=== PATIENT | female | born 1955 | race Two or more races ===

== ENCOUNTER 2023-08-05 09:38 | Outpatient (REF) | payer MEDICARE, SELFPAY ==
[2023-08-05 13:15] LABS: Anion Gap 9 (12-20); Blood Urea Nitrogen 24 mg/dL (9-16); Calcium 10.3 mg/dL (8.4-10.2); Carbon Dioxide 30 mmol/L (22-29); Chloride 104 mmol/L (96-108); Estimated Glomerular Filt Rate 56; Potassium 4.4 mmol/L (3.3-5.1); Sodium 139 mmol/L (135-145)
== END 2023-08-05 09:39 | disposition home or self-care (01) ==
LOC: CF 09:38
PROVIDERS: Visit Provider Internal Medicine Nephrology
DX: I12.9 Hypertensive chronic kidney disease with stage 1 through stage 4 chronic kidney disease, or unspecified chronic kidney disease (principal); N18.31 Chronic kidney disease, stage 3a
CPT/HCPCS: 36415; 80051; 82310; 82565; 84520; 99212

== ENCOUNTER 2023-08-05 09:38 | Outpatient (AMB) | payer MEDICARE, SELFPAY ==
--- NOTE | 2023-08-05 09:40 | HO.NEPHOV ---
HPI HPI Comments History of Present Illness Details I had the privilege of seeing Salome in follow-up of her mild chronic kidney disease and hypertension. Her blood pressure is well controlled .Her blood sugar is reasonable. She does not have any proteinuria, hematuria, pedal edema . She is compliant with her medications. She avoids nonsteroidal anti-inflammatory medications. She does not have any chest pain, shortness of breath, proximal nocturnal dyspnea, orthopnea, or any other systemic symptoms. She denies nausea vomiting or diarrhea . There were no new active complaints at the time of this office visit. FORMERLY [facility], [facility] Medical History (Updated 08/05/23 @ 09:49 by Axel Ram MD) Hypertension Chronic kidney disease, stage 3 unspecified Surgical History (Updated 08/05/23 @ 09:46 by Ally Arthur MA) History of ankle surgery Hx of abdominal surgery Family History (Updated 08/05/23 @ 09:47 by Ally Arthur MA) Mother Diabetes Brother Diabetes (Updated 08/05/23 @ 09:47 by Ally Arthur MA) Alcohol intake: never Patient Tobacco Use Status: Former Tobacco user Vital Signs 08/05/23 09:42 Height 5 ft 6 in Weight 254 lb 4 oz BMI 41.0 BP 134/80 Blood Pressure Location Rt brachial Position Sitting Pulse 64 Pulse Source Pulse Oximeter Physical Exam Vital Signs: Last Vital Signs Pulse 64 08/05/23 09:42 BP 134/80 08/05/23 09:42 BMI result Body Mass Index 41.0 Const General: comfortable and no acute distress Orientation/consciousness: patient oriented x3 HEENT Head: Yes normocephalic Mouth: Normal oral and palatal mucosa present Eyes EOM: EOMs intact bilaterally Neck Neck: Yes supple Resp Auscultation: clear to auscultation bilaterally Cardio Jugular venous distension: no JVD Rate: regular rate GI Palpation (GI): Soft to palpation Auscultation: normal bowel sounds General: Yes no CVA tenderness Back/Spine/Pelvis Back: no CVA tenderness Skin General skin exam: no rashes or lesions noted Neuro General: patient oriented x3 and moves all extremities Extrem General: Yes no pedal edema Assessment & Plan Assessment & Plan (1) Chronic kidney disease, stage 3 unspecified: Code(s): N18.30 - Chronic kidney disease, stage 3 unspecified Qualifiers: Chronic kidney disease stage 3 subtype: stage 3a (GFR 45-59) Qualified Code(s): N18.31 - Chronic kidney disease, stage 3a (2) Hypertension: Code(s): I10 - Essential (primary) hypertension Qualifiers: Hypertension type: primary hypertension Qualified Code(s): I10 - Essential (primary) hypertension Plan Salome has mild CKD 3 likely from vascular disease. She is a diabetic. She has hypertension and is on lisinopril which is tolerating very well. She has no history from hematuria proteinuria. She has no orthostatic symptoms. She has no history of left ventricular hypertrophy, retinopathy. She is compliant with her medications. She tries to hydrate herself well. She has a potential candidate for [employer] or [employer]. I have ordered follow-up blood work and urine studies. I did not make any medication changes today. All questions were answered. Time spent for retrieval of data, patient encounter and documentation 23 minutes. Orders: Orders Electrolytes Today I10 - Essential (primary) hypertension, N18.30 - Chronic kidney disease, stage 3 unspecified Blood Urea Nitrogen Today I10 - Essential (primary) hypertension, N18.30 - Chronic kidney disease, stage 3 unspecified Creatinine Today I10 - Essential (primary) hypertension, N18.30 - Chronic kidney disease, stage 3 unspecified Calcium Today I10 - Essential (primary) hypertension, N18.30 - Chronic kidney disease, stage 3 unspecified Protein Creatinine Ratio, Ur Today I10 - Essential (primary) hypertension, N18.30 - Chronic kidney disease, stage 3 unspecified UA and rflx microscopic Today I10 - Essential (primary) hypertension, N18.30 - Chronic kidney disease, stage 3 unspecified Coding Level of Care Code Est Pt Level 3 (07919) Diagnoses Stage 3a chronic kidney disease N18.31 Chronic kidney disease stage 3 subtype: stage 3a (GFR 45-59) Primary hypertension I10 Hypertension type: primary hypertension
[2023-08-05 09:42] VITALS: BP 134/80; PULSE 64; BMI 41.0
== END 2023-08-05 10:05 | disposition home or self-care (01) ==
PROVIDERS: Visit Provider Internal Medicine Nephrology
DX: N18.31 Chronic kidney disease, stage 3a (principal); I10 Essential (primary) hypertension
CPT/HCPCS: 99213

== ENCOUNTER 2023-11-04 09:52 | Outpatient (AMB) | payer MEDICARE, SELFPAY ==
[2023-11-04 09:55] VITALS: BP 136/88; PULSE 64; O2SAT 94; BMI 41.4
--- NOTE | 2023-11-04 09:55 | HO.NEPHOV_ITS ---
HPI HPI Comments History of Present Illness Details I had the privilege of seeing Salome in follow-up of her mild chronic kidney disease and hypertension. Her blood pressure is well controlled .Her blood sugar is reasonable. She does not have any proteinuria, hematuria, pedal edema . She is compliant with her medications. She avoids nonsteroidal anti- inflammatory medications. She does not have any chest pain, shortness of breath, proximal nocturnal dyspnea, orthopnea, or any other systemic symptoms. She denies nausea vomiting or diarrhea . There were no new active complaints at the time of this office visit [facility] Medical History (Updated 11/04/23 @ 10:12 by Axel Ram MD) Hypertension Chronic kidney disease, stage 3 unspecified Surgical History History of ankle surgery Hx of abdominal surgery Family History Mother Diabetes Brother Diabetes Social History Alcohol intake: never Patient Tobacco Use Status: Former Tobacco user Vital Signs 11/04/23 09:55 Height 5 ft 6 in Weight 256 lb 8 oz BMI 41.4 BP 136/88 Blood Pressure Location Lt brachial Position Sitting Pulse 64 Pulse Source Pulse Oximeter Pulse Oximetry (%) 94 Oxygen Delivery Method Room Air Physical Exam Vital Signs: Last Vital Signs Pulse 64 11/04/23 09:55 BP 136/88 11/04/23 09:55 Pulse Ox 94 11/04/23 09:55 Oxygen Delivery Method Room Air 11/04/23 09:55 BMI result Body Mass Index 41.4 Const General: comfortable and no acute distress Orientation/consciousness: patient oriented x3 HEENT Mouth: Normal oral and palatal mucosa present Eyes EOM: EOMs intact bilaterally Neck Neck: Yes supple Resp Auscultation: clear to auscultation bilaterally Cardio Jugular venous distension: no JVD Rate: regular rate GI Palpation (GI): Soft to palpation Auscultation: normal bowel sounds General: Yes no CVA tenderness Back/Spine/Pelvis Back: no CVA tenderness Skin General skin exam: no rashes or lesions noted Neuro General: patient oriented x3 and moves all extremities Extrem General: Yes no pedal edema Assessment & Plan Assessment & Plan (1) Chronic kidney disease, stage 3 unspecified: Code(s): N18.30 - Chronic kidney disease, stage 3 unspecified Qualifiers: Chronic kidney disease stage 3 subtype: stage 3a (GFR 45-59) Qualified Code(s): N18.31 - Chronic kidney disease, stage 3a (2) Hypertension: Code(s): I10 - Essential (primary) hypertension Qualifiers: Hypertension type: primary hypertension Qualified Code(s): I10 - Essential (primary) hypertension (3) Diabetes: Code(s): E11.9 - Type 2 diabetes mellitus without complications Brooklynn Mcmahon has mild CKD 3 likely from vascular disease. She is a diabetic. She has hypertension and is on lisinopril which is tolerating very well. I increased her lisinopril to 7.5 mg daily. She has no history from hematuria proteinuria. She has no orthostatic symptoms. She has no history of left ventricular hypertrophy, retinopathy. She is compliant with her medications. She tries to hydrate herself well. She has a potential candidate for [employer] or [employer]. I have ordered follow-up blood work and urine studies. I did not make any other medication changes today. All questions were answered. Orders: Orders Calcium Today E11.9 - Type 2 diabetes mellitus without complications, I10 - Essential (primary) hypertension, N18.30 - Chronic kidney disease, stage 3 unspecified Electrolytes Today E11.9 - Type 2 diabetes mellitus without complications, I10 - Essential (primary) hypertension, N18.30 - Chronic kidney disease, stage 3 unspecified Blood Urea Nitrogen Today E11.9 - Type 2 diabetes mellitus without complica tions, I10 - Essential (primary) hypertension, N18.30 - Chronic kidney disease, stage 3 unspecified Vitamin D 25-OH Total Today E11.9 - Type 2 diabetes mellitus without comp lications, I10 - Essential (primary) hypertension, N18.30 - Chronic kidney disease, stage 3 unspecified Phosphorus Today E11.9 - Type 2 diabetes mellitus without complications, I10 - Essential (primary) hypertension, N18.30 - Chronic kidney disease, stage 3 unspecified Creatinine Today E11.9 - Type 2 diabetes mellitus without complications, I10 - Essential (primary) hypertension, N18.30 - Chronic kidney disease, stage 3 unspecified Hemoglobin A1c Today E11.9 - Type 2 diabetes mellitus without complications, I10 - Essential (primary) hypertension, N18.30 - Chronic kidney disease, stage 3 unspecified Protein Creatinine Ratio, Ur Today E11.9 - Type 2 diabetes mellitus without complications, I10 - Essential (primary) hypertension, N18.30 - Chronic kidney disease, stage 3 unspecified Parathyroid Hormone Intact Today E11.9 - Type 2 diabetes mellitus without c omplications, I10 - Essential (primary) hypertension, N18.30 - Chronic kidney disease, stage 3 unspecified Coding Level of Care Code Est Pt Level 3 (63291) Diagnoses Stage 3a chronic kidney disease N18.31 Chronic kidney disease stage 3 subtype: stage 3a (GFR 45-59) Primary hypertension I10 Hypertension type: primary hypertension Diabetes E11.9 Results Reviewed Nephrology Results: Sodium 139 mmol/L (135-145) 08/05/23 Potassium 4.4 mmol/L (3.3-5.1) 08/05/23 Chloride 104 mmol/L (96-108) 08/05/23 Carbon Dioxide 30 mmol/L (22-29) H 08/05/23 BUN 24 mg/dL (9-16) H 08/05/23 Creatinine 0.99 mg/dL (0.5-1.4) 08/05/23 Calcium 10.3 mg/dL (8.4-10.2) H 08/05/23
== END 2023-11-04 10:17 | disposition home or self-care (01) ==
PROVIDERS: Visit Provider Internal Medicine Nephrology
DX: N18.31 Chronic kidney disease, stage 3a (principal); I10 Essential (primary) hypertension; E11.9 Type 2 diabetes mellitus without complications
CPT/HCPCS: 99213

== ENCOUNTER → 2023-11-04 09:52 | Outpatient (BNVA) | payer MEDICARE, SELFPAY | PROVIDERS: Visit Provider Internal Medicine Nephrology | DX: E11.22 Type 2 diabetes mellitus with diabetic chronic kidney disease (principal); I12.9 Hypertensive chronic kidney disease with stage 1 through stage 4 chronic kidney disease, or unspecified chronic kidney disease; N18.31 Chronic kidney disease, stage 3a | CPT/HCPCS: 99212 ==

== ENCOUNTER 2024-03-18 10:15 | Outpatient (REF) | payer MEDICARE, SELFPAY ==
[2024-03-18 17:48] LABS: Estimated Average Glucose 146 mg/dL; Hemoglobin A1c % 6.7 % (<6.0)
[2024-03-18 17:57] LABS: Anion Gap 13 (12-20); Blood Urea Nitrogen 25 mg/dL (9-16); Calcium 11.1 mg/dL (8.4-10.2); Carbon Dioxide 27 mmol/L (22-29); Chloride 104 mmol/L (96-108); Estimated Glomerular Filt Rate 50; Phosphorus 3.6 mg/dL (2.7-4.5); Potassium 4.3 mmol/L (3.3-5.1); Sodium 140 mmol/L (135-145)
[2024-03-19 06:58] LABS: Parathyroid Hormone Intact 61.4 pg/mL (8.7-77.1)
== END 2024-03-18 10:16 | disposition home or self-care (01) ==
LOC: HO.HKASLDS 10:15
PROVIDERS: Visit Provider Internal Medicine Nephrology
DX: I10 Essential (primary) hypertension (principal); N18.30 Chronic kidney disease, stage 3 unspecified; E11.9 Type 2 diabetes mellitus without complications
CPT/HCPCS: 36415; 80051; 82306; 82310; 82565; 83036; 83970; 84100; 84520

== ENCOUNTER 2024-03-30 10:18 | Outpatient (AMB) | payer MEDICARE, SELFPAY ==
--- NOTE | 2024-03-30 10:39 | HO.NEPHOV_ITS ---
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 Her blood pressure is well controlled .Her blood sugar is reasonable. She does not have any proteinuria, hematuria, pedal edema . She is compliant with her medications. She avoids nonsteroidal anti- inflammatory medications. She does not have any chest pain, shortness of breath, proximal nocturnal dyspnea, orthopnea, or any other systemic symptoms. She denies nausea vomiting or diarrhea . Her A1c has gone up. She has been started on bisphpsphonate and calcium by PCP. There were no new active complaints at the time of this office visit [facility] Medical History (Updated 11/04/23 @ 10:12 by Axel Ram MD) Hypertension Chronic kidney disease, stage 3 unspecified Surgical History History of ankle surgery Hx of abdominal surgery Family History Mother Diabetes Brother Diabetes Social History Alcohol intake: never Patient Tobacco Use Status: Former Tobacco user Physical Exam Vital Signs: Last Vital Signs Pulse 69 03/30/24 10:42 BP 130/90 H 03/30/24 10:42 Pulse Ox 95 03/30/24 10:42 Oxygen Delivery Method Room Air 03/30/24 10:42 BMI result Body Mass Index 42.1 Const General: comfortable and no acute distress Orientation/consciousness: patient oriented x3 HEENT Head: Yes normocephalic Mouth: Normal oral and palatal mucosa present Eyes EOM: EOMs intact bilaterally Neck Neck: Yes supple Resp Auscultation: clear to auscultation bilaterally Cardio Jugular venous distension: no JVD Rate: regular rate GI Palpation (GI): Soft to palpation Auscultation: normal bowel sounds General: Yes no CVA tenderness Back/Spine/Pelvis Back: no CVA tenderness Skin General skin exam: no rashes or lesions noted Neuro General: patient oriented x3 and moves all extremities Extrem General: Yes no pedal edema Results Reviewed Nephrology Results: Sodium 140 mmol/L (135-145) 03/18/24 Potassium 4.3 mmol/L (3.3-5.1) 03/18/24 Chloride 104 mmol/L (96-108) 03/18/24 Carbon Dioxide 27 mmol/L (22-29) 03/18/24 BUN 25 mg/dL (9-16) H 03/18/24 Creatinine 1.09 mg/dL (0.5-1.4) 03/18/24 Calcium 11.1 mg/dL (8.4-10.2) H 03/18/24 Phosphorus 3.6 mg/dL (2.7-4.5) 03/18/24 PTH Intact 61.4 pg/mL (8.7-77.1) 03/18/24 Assessment & Plan Assessment & Plan (1) Chronic kidney disease, stage 3 unspecified: Code(s): N18.30 - Chronic kidney disease, stage 3 unspecified Category: Medical Qualifiers: Chronic kidney disease stage 3 subtype: stage 3a (GFR 45-59) Qualified Code(s): N18.31 - Chronic kidney disease, stage 3a (2) Hypertension: Code(s): I10 - Essential (primary) hypertension Category: Medical Qualifiers: Hypertension type: primary hypertension Qualified Code(s): I10 - Essential (primary) hypertension Plan Salome has mild CKD 3 likely from vascular disease. She is a diabetic. She has hypertension and is on lisinopril which is tolerating very well. She could continue lisinopril 7.5 mg daily. She has no history from hematuria proteinuria. She has no orthostatic symptoms. She has no history of left ventricular hypertrophy, retinopathy. She is compliant with her medications. She tries to hydrate herself well. She has a potential candidate for [employer] or [employer]. I have asked her to hold Vitamin D and calcium. I have ordered follow-up blood work and urine studies. I did not make any other medication changes today. All questions were answered. Orders: Orders Creatinine 6 Months I10 - Essential (primary) hypertension, N18.31 - Chronic kidney disease, stage 3a Blood Urea Nitrogen 6 Months I10 - Essential (primary) hypertension, N18.31 - Chronic kidney disease, stage 3a Electrolytes 6 Months I10 - Essential (primary) hypertension, N18.31 - Chronic kidney disease, stage 3a Vitamin D 25-OH Total 6 Months I10 - Essential (primary) hypertension, N18.31 - Chronic kidney disease, stage 3a Immunofixation Pnl, Serum 6 Months I10 - Essential (primary) hypertension, N18.31 - Chronic kidney disease, stage 3a Protein Creatinine Ratio, Ur 6 Months I10 - Essential (primary) hypertension, N18.31 - Chronic kidney disease, stage 3a Calcium 6 Months I10 - Essential (primary) hypertension, N18.31 - Chronic kidney disease, stage 3a Parathyroid Hormone Intact 6 Months I10 - Essential (primary) hypertension, N18.31 - Chronic kidney disease, stage 3a Parathyroid Hormone Related Pr 6 Months I10 - Essential (primary) hypertension, N18.31 - Chronic kidney disease, stage 3a Coding Level of Care Code Est Pt Level 4 (34585) Diagnoses Stage 3a chronic kidney disease N18.31 Chronic kidney disease stage 3 subtype: stage 3a (GFR 45-59) Primary hypertension I10 Hypertension type: primary hypertension
[2024-03-30 10:42] VITALS: BP 120/80; PULSE 69; O2SAT 95; BMI 42.1
== END 2024-03-30 11:15 | disposition home or self-care (01) ==
PROVIDERS: Visit Provider Internal Medicine Nephrology
DX: N18.31 Chronic kidney disease, stage 3a (principal); I10 Essential (primary) hypertension
CPT/HCPCS: 99214

== ENCOUNTER → 2024-03-30 10:18 | Outpatient (BNVA) | payer MEDICARE, SELFPAY | PROVIDERS: Visit Provider Internal Medicine Nephrology | DX: I12.9 Hypertensive chronic kidney disease with stage 1 through stage 4 chronic kidney disease, or unspecified chronic kidney disease (principal); N18.31 Chronic kidney disease, stage 3a; Z79.899 Other long term (current) drug therapy | CPT/HCPCS: 99212 ==

== ENCOUNTER 2024-09-15 12:55 | Outpatient (REF) | payer MEDICARE, SELFPAY ==
[2024-09-15 18:12] LABS: Anion Gap 12 (12-20); Blood Urea Nitrogen 20 mg/dL (9-16); Calcium 10.2 mg/dL (8.4-10.2); Carbon Dioxide 27 mmol/L (22-29); Chloride 105 mmol/L (96-108); Estimated Glomerular Filt Rate 52; Potassium 4.3 mmol/L (3.3-5.1); Sodium 140 mmol/L (135-145)
[2024-09-15 18:23] LABS: Vitamin D 25-OH Total 32.6 ng/mL (>30)
[2024-09-15 18:29] LABS: Parathyroid Hormone Intact 74.1 pg/mL (8.7-77.1)
[2024-09-20 15:54] LABS: IgA 219 mg/dL (70-320); IgG 1846 mg/dL (600-1540); IgM 111 mg/dL (50-300)
== END 2024-09-15 12:56 | disposition home or self-care (01) ==
LOC: HO.HKASLDS 12:55
PROVIDERS: Visit Provider Internal Medicine Nephrology
DX: Z13.89 Encounter for screening for other disorder (principal)
CPT/HCPCS: 36415; 80051; 82306; 82310; 82565; 82784; 83970; 84520; 86334

== ENCOUNTER 2024-09-15 13:30 | Outpatient (REF) | payer MEDICARE, SELFPAY ==
[2024-09-24 17:33] LABS: Parathyroid Hormone Related Pr 21 pg/mL (11-20)
== END 2024-09-15 13:31 | disposition home or self-care (01) ==
LOC: HO.LAB 13:30
PROVIDERS: PCP Physician Assistant Medical; Visit Provider Internal Medicine Nephrology
DX: I10 Essential (primary) hypertension (principal); N18.31 Chronic kidney disease, stage 3a; I12.9 Hypertensive chronic kidney disease with stage 1 through stage 4 chronic kidney disease, or unspecified chronic kidney disease
CPT/HCPCS: 36415; 80051; 82306; 82310; 82565; 82784; 83519; 83970; 84520; 86334

== ENCOUNTER 2024-09-16 09:48 | Outpatient (AMB) | payer MEDICARE, SELFPAY ==
--- NOTE | 2024-09-16 09:55 | HO.NEPHOV ---
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 Her blood pressure is well controlled .Her blood sugar is reasonable. She does not have any proteinuria, hematuria, pedal edema . She is compliant with her medications. She avoids nonsteroidal anti-inflammatory medications. She does not have any chest pain, shortness of breath, proximal nocturnal dyspnea, orthopnea, or any other systemic symptoms. She denies nausea vomiting or diarrhea . Her A1c had been acceptable. She has been started on bisphosphonate and calcium by PCP. There were no new active complaints at the time of this office visit [facility] Medical History (Updated 11/04/23 @ 10:12 by Axel Ram MD) Hypertension Chronic kidney disease, stage 3 unspecified Surgical History History of ankle surgery Hx of abdominal surgery Family History Mother Diabetes Brother Diabetes Social History Alcohol intake: never Patient Tobacco Use Status: Former Tobacco user Review of Systems Const All systems reviewed & are unremarkable except as noted in HPI and below Physical Exam Vital Signs: Last Vital Signs Pulse 70 09/16/24 09:58 BP 110/80 09/16/24 09:58 Pulse Ox 98 09/16/24 09:58 Oxygen Delivery Method Room Air 09/16/24 09:58 BMI result Body Mass Index 42.3 Const General: comfortable and no acute distress Orientation/consciousness: patient oriented x3 HEENT Head: Yes normocephalic Mouth: Normal oral and palatal mucosa present Eyes EOM: EOMs intact bilaterally Neck Neck: Yes supple Resp Auscultation: clear to auscultation bilaterally Cardio Jugular venous distension: no JVD Rate: regular rate GI Palpation (GI): Soft to palpation Auscultation: normal bowel sounds General: Yes no CVA tenderness Back/Spine/Pelvis Back: no CVA tenderness Skin General skin exam: no rashes or lesions noted Neuro General: patient oriented x3 and moves all extremities Extrem General: Yes no pedal edema Results Reviewed Nephrology Results: Sodium 140 mmol/L (135-145) 09/15/24 Potassium 4.3 mmol/L (3.3-5.1) 09/15/24 Chloride 105 mmol/L (96-108) 09/15/24 Carbon Dioxide 27 mmol/L (22-29) 09/15/24 BUN 20 mg/dL (9-16) H 09/15/24 Creatinine 1.05 mg/dL (0.5-1.4) 09/15/24 Calcium 10.2 mg/dL (8.4-10.2) 09/15/24 Phosphorus 3.6 mg/dL (2.7-4.5) 03/18/24 PTH Intact 74.1 pg/mL (8.7-77.1) 09/15/24 Assessment & Plan Assessment & Plan (1) Chronic kidney disease, stage 3 unspecified: Code(s): N18.30 - Chronic kidney disease, stage 3 unspecified Category: Medical Qualifiers: Chronic kidney disease stage 3 subtype: stage 3a (GFR 45-59) Qualified Code(s): N18.31 - Chronic kidney disease, stage 3a (2) Hypertension: Code(s): I10 - Essential (primary) hypertension Category: Medical Qualifiers: Hypertension type: primary hypertension Qualified Code(s): I10 - Essential (primary) hypertension Plan Salome has mild CKD 3 likely from vascular disease. She is a diabetic. She has hypertension and is on lisinopril which is tolerating very well. She could continue lisinopril 7.5 mg daily. She has no history from hematuria proteinuria. She has no orthostatic symptoms. She has no history of left ventricular hypertrophy, retinopathy. She is compliant with her medications. She tries to hydrate herself well. She has a potential candidate for [employer] or [employer]. I have asked her to hold Vitamin D and calcium. I have ordered follow-up blood work and urine studies. I did not make any other medication changes today. All questions were answered Orders: Orders Protein Creatinine Ratio, Ur 6 Months I10 - Essential (primary) hypertension, N18.31 - Chronic kidney disease, stage 3a Creatinine 6 Months I10 - Essential (primary) hypertension, N18.31 - Chronic kidney disease, stage 3a Blood Urea Nitrogen 6 Months I10 - Essential (primary) hypertension, N18.31 - Chronic kidney disease, stage 3a Electrolytes 6 Months I10 - Essential (primary) hypertension, N18.31 - Chronic kidney disease, stage 3a Coding Level of Care Code Est Pt Level 4 (69775) Diagnoses Stage 3a chronic kidney disease N18.31 Chronic kidney disease stage 3 subtype: stage 3a (GFR 45-59) Primary hypertension I10 Hypertension type: primary hypertension
[2024-09-16 09:58] VITALS: BP 110/80; PULSE 70; O2SAT 98; BMI 42.3
== END 2024-09-16 10:20 | disposition home or self-care (01) ==
PROVIDERS: Visit Provider Internal Medicine Nephrology
DX: N18.31 Chronic kidney disease, stage 3a (principal); I10 Essential (primary) hypertension
CPT/HCPCS: 99214

== ENCOUNTER → 2024-09-16 09:48 | Outpatient (BNVA) | payer MEDICARE, SELFPAY | PROVIDERS: Visit Provider Internal Medicine Nephrology | DX: I12.9 Hypertensive chronic kidney disease with stage 1 through stage 4 chronic kidney disease, or unspecified chronic kidney disease (principal); N18.31 Chronic kidney disease, stage 3a | CPT/HCPCS: 99212 ==

== ENCOUNTER 2025-05-30 09:43 | Outpatient (REF) | payer MEDICARE, SELFPAY ==
--- OUTSIDE RECORDS SUMMARY | 2025-05-30 11:36 | XMS_ITS | Clinical Summary ---
Author Organization [facility] Address [address] [place] [address] Care Team Providers Care Mathematics Improvement Teacher Name Role Phone Rosalva Kahn PA-C Primary Care Provider [phone] Source Comments PLEASE NOTE, if this patient is a minor, it may be UNLAWFUL to discuss sensitive information that is contained in these records (such as FAMILY PLANNING, MENTAL HEALTH or SUBSTANCE ABUSE) with the minor patient's parent or other person without the patient's specific authorization.[facility] Allergies No known active allergies Medications latanoprost (XALATAN) 0.005 % ophthalmic solution 016 Active blood-glucose meter kit (FREESTYLE LITE METER) monitoring kitIndications: Insulin dependent type 2 diabetes mellitus, uncontrolled 3 (three) times daily with meals. 1 Each 0 0[address] Active aspirin [address] tablet TAKE 1 TABLET BY MOUTH EVERY DAY 30 Tab 0 017 Active dorzolamide (TRUSOPT) 2 % ophthalmic solution 3 019 Active lisinopriL 5 mg tabletIndicatio ns:Essential hypertension Take 1 Tablet by mouth once daily Prescribed by: Dr. Axel Ram 90 Tablet 021 Active dorzolamide-nolberto oloL (COSOPT) 22.3-6.8 mg/mL ophthalmic solution INSTILL 1 DROP INTO EACH EYE TWICE DAILY DIRECTED 021 Active blood sugar diagnostic stripsIndicatio ns:Type 2 diabetes mellitus with retinopathy, with long-term current use of insulin, macular edema presence unspecified, unspecified laterality, unspecified retinopathy severity ([facility]) Use to check BG 3x/d DX E11.9 Freestyle Lite 100 Each 11 024 Active lancets (FREESTYLE LANCETS) 28 gaugeIndication s:Type 2 diabetes mellitus with retinopathy, with long-term current use of insulin, macular edema presence unspecified, unspecified laterality, unspecified retinopathy severity ([facility]) Test blood sugars TID w/meals DX: E11.9 100 Each 11 024 Active pen needle, diabetic (BD DARCY 2ND GEN PEN NEEDLE) 32 gauge x 5/32 ndleIndications :Type 2 diabetes mellitus with retinopathy, with long-term current use of insulin, macular edema presence unspecified, unspecified laterality, unspecified retinopathy severity ([facility]) Use 1x/d Use to administer Lantus QD UD DXE11.9 100 Each 1 024 Active SEMGLEE,INSULIN GLARG-YFGN,PEN 100 unit/mL (3 mL) inpnIndications :Type 2 diabetes mellitus with unspecified diabetic retinopathy without macular edema ([facility]) INJECT 20-25 UNITS INTO THE SKIN NIGHTLY AT BEDTIME 15 mL 025 Active brimonidine (ALPHAGAN) 0.2 % ophthalmic solution INSTILL 1 DROP INTO LEFT EYE TWICE DAILY 025 Active methazolAMIDE 25 mg tab Take 1 Tablet by mouth 3 (three) times daily 025 Active RHOPRESSA 0.02 % drop INSTILL 1 DROP INTO LEFT EYE AT NIGHT AT BEDTIME 025 Active atorvastatin (LIPITOR) 40 mg tabletIndicatio ns:Essential hypertension,Dy slipidemia,Cont rolled type 2 diabetes mellitus without complication, with long-term current use of insulin ([facility]) TAKE 1 TABLET BY MOUTH ONCE DAILY WITH SUPPER 90 Tablet 025 Active metoprolol succinate XL (TOPROL-XL) 100 mg 24 hr tabletIndicatio ns:Essential hypertension Take 1 tablet by mouth once daily 90 Tablet 025 Active LANTUS SOLOSTAR U-100 INSULIN 100 unit/mL (3 mL) penIndications: Type 2 diabetes mellitus with retinopathy, with long-term current use of insulin, macular edema presence unspecified, unspecified laterality, unspecified retinopathy severity ([facility]) INJECT 20 TO 25 UNITS SUBCUTANEOUSLY ONCE DAILY AT NIGHT AT BEDTIME 15 mL 025 Active LANTUS SOLOSTAR U-100 INSULIN 100 unit/mL (3 mL) penIndications: Type 2 diabetes mellitus with retinopathy, with long-term current use of insulin, macular edema presence unspecified, unspecified laterality, unspecified retinopathy severity ([facility]) INJECT 20 TO 25 UNITS SUBCUTANEOUSLY EVERY NIGHT AT BEDTIME 15 mL 025 2024 Discontinued Active Problems Problem Noted Date Diagnosed Date Class 3 severe obesity due t o excess calories with serious comorbidity and body mass index (BMI) of 45.0 to 49.9 in adult ([facility]) 12/13/2024 Ambulates with cane 02/10/2024 Diabetic retinopathy ([facility]) 06/02/2023 Acute kidney failure, unspecified ([facility] 12/03/2021 Hypertensive renal disease 10/01/2021 Other specified glaucoma 01/11/2021 Ankle fracture, right 07/24/2017 Overview (07/24/2017): Xray 07/12/17 at [facility] there is a comminuted fracture of the midshaft of the fibula with large butterfly type fracture fracment and medical apex angulation. There is also an oblique/spiral fracture of the distal tibia with mild comminution and approximately one shaft width lateral displacement of distal fragment. CKD (chronic kidney disease) stage 3, GFR 30-59 ml/min ([facility]) 12/28/2015 Overview (06/08/2018): [facility]-stage II-last follow- up 05/21/2018 Involuntary muscle jerks while sleeping 10/02/19 16 Routine general medical exam ination at a health care facility 03/03/2015 Abnormal mammogram, unspecified 09/09/2014 Overview (10/26/2014): 08/25/14- 1.6 x 2.0 cm posterolateral,upper right breast at 9-10 clock position,12 cm from nipple, solid, coarse but pleomorphic microcalcifications of rt breast. calcifications with tissue asymmetry In rt breast. 10/12/14- stereotactic core needle biopsy of 2 clusters of microcalcifications of rt breast . U/s guided biopsy of rt breast mass -1.8x 2.3x0.9 cm is noted. With biopsy marker in place. 1- mass - fibroadenoma, neg for malignancy. 2- sclerotic fibroadenoma with associated microcalcifications. 3-sclerotic fibroadenoma with associated microcalcifications. Essential hypertension 12/17/2013 Stroke of unknown etiology w ith right sided weakness and s/p rehabilitation 12/17/2013 Overview (10/04/2015): Pt at [facility] for stroke , sent to rehab post stroke, had home health r for wound care.dale [phone]. Background retinopathy- [facility] Vision problem 12/17/2013 Overview (03/03/2015): [facility] care at [facility]-06/16/14. preproliferative diabetic retinopathy. Rpt in 6 months Dyslipidemia 12/17/2013 Type 2 diabetes mellitus wit h retinopathy, with long-term current use of insulin ([facility]) 12/17/2013 Resolved Problems Problem Noted Date Diagnosed Date Resolved Date Pre-op exam 12/08/2015 07/02/2017 Pre-op exam 10/03/2014 03/03/2015 Muscle twitching 06/03/2014 04/13/2015 Preop examination 01/17/2014 10/04/2015 Anemia 12/26/2013 06/03/2014 Mild vitamin D deficiency 12/26/2013 Encounters Date Type Department Care Team Description 04/20/2025 Results Follow-Up [address] [address] Radha Cohen NP 04/04/2025 3:40 PM EDT Office Visit [address] [address] Radha Cohen NP from Last 3 Months Immunizations Immunization Administration Dates Next Due Flu, High Dose, 65y+, Fluzone High Dose 06/13/20 23,05/23/2022 Flu, Preservative Free 07/02/2017 INFLUENZA, SEASONAL, INJECTABLE 07/04/2014 Influenza (FLUBLOK),recombinant,injectable,preservative Free 06/11/2024 Moderna COVID-19 (Spikevax), Mrna, Lnp-s, Pf, 50 Mcg/0.5 Ml, 12yr+ 02/10/2024 Moderna COVID-19 Vaccine, re d cap blue label, 12+ Primary Series 01/17/2021,12/20/2020 PNEUMOCOCCAL CONJUGATE PCV 13 07/04/2014 PNEUMOCOCCAL CONJUGATE PCV 20 (Prevnar 20) 06/11 PNEUMOCOCCAL POLYSACCHARIDE PPV23 (Pneumovax 23) 03/29/2019 Pfizer COVID-19 (Comirnaty), Mrna, Lnp-s, Pf, Michele-sucrose, 30 Mcg/0.3 Ml, 12yr+ 06/11/2024 TDAP 05/23/2022 Td (adult) unspecified 05/27/2001 ZOSTER VACCINE, RECOMBINANT (SHINGRIX) 3,05/23/2022 Family History Medical History Relation Name Comments Diabetes Brother Hypertension Brother Hypertension Father Diabetes Mother Hypertension Mother at 87-dementia Diabetes Sister Hypertension Sister Relation Name Status Comments Brother Father Mother Sister Social History Tobacco Use Types Packs/Day Years Used Date Smoking Tobacco: Former Passive Smoke Exposure: Never Smokeless Tobacco: Never Quit: 09/02/2013 Tobacco Cessation:Counseling Given: Not Answered Alcohol Use Standard Drinks/Week Comments No 0 (1 standard drink = 0.6 oz pur e alcohol) Social Connections Answer Date Recorded How often do you feel lonely or isolated from th ose around you? 1 06/11/2024 Financial Resource Strain Answer Date R ecorded Hard to pay for: Food 1 06/11/2024 Stress Answer Date Recorded Do you feel these kinds of stress these days? 1 06/11/2024 Physical Activity Answer Date Recorded Physical Activity 0 05/01/2019 Food Insecurity Answer Date Recorded Hard to pay for: Food 1 06/11/2024 Transportation Needs Answer Date Record ed Hard to pay for: Transportation 1 06/11/2024 Housing Stability Answer Date Recorded Hard to pay for: Rent/Mortgage payment 1 06/11/2024 Safety and Environment Answer Date Kofi rded Safety 1 02/10/2024 Utilities Answer Date Recorded Hard to pay for: Utilities 1 06/11 Employment Answer Date Recorded Stress 0 11/26/2021 Comments No Sex and Gender Information Value Date Recorded Sex Assigned at Female 06/17/2017 11:53 AM PDT Legal Sex Female 10:05 AM PDT Gender Identity Female 06/17/2017 11:53 AM PDT Sexual Orientation Straight 06/17/2017 11 :53 AM PDT Occupation Industry Job Start Date Job End Date disability Not on file Not on file Not on file Last Filed Vital Signs Vital Sign Reading Time Taken Comments Blood Pressure 140/85 04/04/2025 3:41 PM EDT Pulse 77 04/04/2025 3:41 PM EDT Temperature 36.3 C (97.3 F) 04/04/2025 3:41 PM EDT Respiratory Rate 19 04/04/2025 3:41 PM EDT Oxygen Saturation 96% 01/18/2025 10: 18 AM EDT Inhaled Oxygen Concentration - - Weight 118.6 kg (261 lb 6.4 oz) 04/04/2025 3:41 PM EDT Height 160 cm (5' 3 ) 04/04/2025 3:41 PM EDT Body Mass Index 46.3 04/04/2025 3:41 PM EDT Plan of Treatment Health Maintenance Due Date Last Done Comments Dental Examination 1955 Diabetes Foot Exam 1957 Urine Albumin Creatinine Rat io Screening 1957 CT Colonography 2002 Colonoscopy 2002 Colorectal Cancer Screening 2002 FIT/gFOBT 2002 Fecal DNA 2002 Flexible Sigmoidoscopy 2002 Retinopathy Screening 06/15/2016 06/15/2015 (Managed by Outside Provider), 06/16/2014 (Managed by Outside Provider) [id number] ( season) 2025 06/11/2024, 02/10/2024, 01/17/2021, Additional history exists Imm-Influenza (#1) 2025 06/11/2024, 1 , 05/23/2022, Additional history exists Medicare Annual Wellness Visit 06/11/2025 06/11/2024 Hemoglobin A1c 07/19/2025 04/18/2025, 01/06, 12/20/2024, Additional history exists Falls Prevention 01/18/2026 01/18/2025, 05/23/2022 Lipid Screening 01/18/2026 01/18/2025, 12/2023, 02/10/2024, Additional history exists Serum Creatinine 01/18/2026 01/18/2025, 06/2024, 06/11/2024, Additional history exists Bone Density Screening 03/03/2026 03/03/2024 Breast Cancer Screening (Mammogram) 03/20/2026 03/20/2024, 06/17/2022, 12/27/2020, Additional history exists Tobacco Screening 04/04/2026 04/04/2025 Imm-DTaP/Tdap/Td (2 - Td or Tdap) 05/23/2032 022, 05/27/2001 Imm-Zoster, Recombinant Completed 12/31/2022, 05/23 Hepatitis C Screening Completed 02/06/2023 Imm-Pneumococcal 50+ Completed 06/11/2024, 03/29/2019, 07/04/2014 Alcohol and Drug Screen Completed 12/14/19, 06/11/2024, 02/10/2024, Additional history exists Depression Annual Screen Completed 01/18/2025, 02/07 Procedures Procedure Name Priority Date/Time Associated Diagnosis Comments HEMOGLOBIN GLYCOSYLATED A1C Routine 04/18/2025 9:29 AM EDT Type 2 diabetes mellitus with mild nonproliferative retinopathy, with long-term current use of insulin, macular edema presence unspecified, unspecified laterality ([facility]) Preop examination HEALTH HISTORY SCANNED DOCUMENT 04/04/2025 3:00 AM EDT COMPREHENSIVE METABOLIC PANEL Routine 01/18/2025 10:50 AM EDT Type 2 diabetes mellitus with mild nonproliferative retinopathy, with long-term current use of insulin, macular edema presence unspecified, unspecified laterality ([facility]) Essential hypertension Dyslipidemia LIPID PANEL Routine 01/18/2025 10:50 AM EDT Type 2 diabetes mellitus with mild nonproliferative retinopathy, with long-term current use of insulin, macular edema presence unspecified, unspecified laterality ([facility]) Essential hypertension Dyslipidemia REFERRAL FOR MAMMOGRAM Routine 03/20/2024 3:00 AM EDT Breast cancer screening by mammogram REFERRAL FOR BONE DENSITY TESTING Routine 03/03/2024 3:00 AM EDT Postmenopausal ACUTE HEPATITIS PANEL W/RFLX Routine 02/06/2023 10:35 AM EDT Routine screening for STI (sexually transmitted infection) from Last 3 Months or Most Recently Relevant to Health Maintenance Results * (ABNORMAL) HEMOGLOBIN GLYCOSYLATED A1C Routine (04/18/2025 9:29 AM EDT) HEMOGLOBIN A1C 7.0(H) <5.7 % 04/19/2025 11:29 AM EDT [facility] Blood Blood / Unknown 04/18/2025 9 :29 AM EDT 04/19/2025 3:44 AM EDT Narrative [facility] - 04/19/2025 11:29 AM EDT For someone without known diabetes, a hemoglobin A1c value of 6.5% or greater indicates that they may have diabetes and this should be confirmed with a follow-up test. . For someone with known diabetes, a value <7% indicates that their diabetes is well controlled and a value greater than or equal to 7% indicates suboptimal control. A1c targets should be individualized based on duration of diabetes, age, comorbid conditions, and other considerations. . Currently, no consensus exists regarding use of hemoglobin A1c for diagnosis of diabetes for children. . Radha Cohen NP LAB - BLOOD DRAW Final Resul t [facility] [address] [place] [id number], [facility] [address] [address] * HEALTH HISTORY SCANNED DOCUMENT (04/04/2025 3:00 AM EDT) 04/04/2025 3:00 AM EDT Rosalva Kahn PA-C SCAN OTHER ORDERS Final Resu lt * LIPID PANEL (01/18/2025 10:50 AM EDT) CHOLESTEROL, TOTAL 131 <200 mg/dL [facility] HDL CHOLESTEROL 52 > OR = 50 mg/dL [facility] TRIGLYCERIDES 117 <150 mg/dL [facility] LDL-CHOLESTEROL 59 99 mg/dL (calc) [facility] Comment: Reference range: <100 Desirable range <100 mg/dL for primary prevention; <70 mg/dL for patients with CHD or diabetic patients with > or = 2 CHD risk factors. LDL-C is now calculated using the Meghna calculation, which is a validated novel method providing better accuracy than the Friedewald equation in the estimation of LDL-C. Cayetano SS et al. JESSICA. 2013;310(19): 0045-8511 (http://education.Stamped/faq/XLT405) CHOL/HDLC RATIO 2.5 <5.0 (calc) [facility] NON-HDL CHOLESTEROL 79 <130 mg/dL (calc) [facility] Comment: For patients with diabetes plus 1 major ASCVD risk factor, treating to a non-HDL-C goal of <100 mg/dL (LDL-C of <70 mg/dL) is considered a therapeutic option. Blood Blood / Unknown 01/18/2025 1 0:50 AM EDT 01/18/2025 10:50 AM EDT Narrative [facility] - 01/19/2025 7:26 AM EDT FASTING:YES us Rosalva Kahn PA-C LAB - BLOOD DRAW Final Resul t [facility] [address] [address], [facility] [address] [place] [id number] * (ABNORMAL) COMPREHENSIVE METABOLIC PANEL (01/18/2025 10:50 AM EDT) GLUCOSE 125(H) 65 - 99 mg/dL [facility] Comment: Fasting reference interval For someone without known diabetes, a glucose value between 100 and 125 mg/dL is consistent with prediabetes and should be confirmed with a follow-up test. UREA NITROGEN (BUN) 24 7 - 25 mg/dL [facility] CREATININE (blood) 0.96 0.50 - 1.05 mg/dL [facility] EGFR 65 > OR = 60 mL/min/1. 73m2 [facility] BUN/CREATININE RATIO SEE NOTE: [facility] Comment: Not Reported: BUN and Creatinine are within reference range. SODIUM 137 135 - 146 mmol/L [facility] POTASSIUM 4.6 3.5 - 5.3 mmol/L [facility] CHLORIDE 100 98 - 110 mmol/L [facility] CARBON DIOXIDE 30 20 - 32 mmol/L [facility] CALCIUM 10.0 8.6 - 10.4 mg/dL [facility] PROTEIN, TOTAL 7.9 6.1 - 8.1 g/dL [facility] ALBUMIN 4.4 3.6 - 5.1 g/dL [facility] GLOBULIN 3.5 1.9 - 3.7 g/dL (calc) [facility] ALBUMIN/GLOBULI N RATIO 1.3 1.0 - 2.5 (calc) [facility] BILIRUBIN, TOTAL 0.4 0.2 - 1.2 mg/dL [facility] ALKALINE PHOSPHATASE 118 37 - 153 U/L [facility] AST 15 10 - 35 U/L [facility] ALT 10 6 - 29 U/L [facility] Blood Blood / Unknown 01/18/2025 1 0:50 AM EDT 01/18/2025 10:50 AM EDT Narrative [employer] [facility] - 01/19/2025 7:26 AM EDT FASTING:YES us Rosalva Kahn PA-C LAB - BLOOD DRAW Final Resul t [facility] [address] [address], [facility] [address] [address] * REFERRAL FOR MAMMOGRAM SCREENING (03/20/2024 3:00 AM EDT) 03/20/2024 3:00 AM EDT us Rosalva Kahn PA-C [facility] [place] [place] Edited Resul t - Final * REFERRAL FOR BONE DENSITY TESTING (03/03/2024 3:00 AM EDT) 03/03/2024 3:00 AM EDT us Blackwell Criss [facility] DXA Edited Resul t - Final * HEPATITIS PANEL W/RFLX (02/06/2023 10:35 AM EDT) HEPATITIS B SURFACE ANTIGEN NON-REACT JOSE F NON-REACT JOSE F [facility] HEPATITIS A IGM ANTIBODY NON-REACT JOSE F NON-REACT JOSE F [facility] [employer] [facility] COMMENT [facility] [facility] HEPATITIS B CORE IGM ANTIBODY NON-REACT JOSE F NON-REACT JOSE F [facility] [facility] HEPATITIS C ANTIBODY NON-REACT JOSE F NON-REACT JOSE F [facility] [facility] SIGNAL TO CUT-OFF 0.15 <1.00 [employer] [facility] Comment: HCV antibody was non-reactive. There is no laboratory evidence of HCV infection. In most cases, no further action is required. However, if recent HCV exposure is suspected, a test for HCV RNA (test code 52975) is suggested. For additional information please refer to [email or web address]/faq/TGC96k8 (This link is being provided for informational/ educational purposes only.) Blood Blood / Unknown 02/06/2023 1 0:35 AM EDT 02/06/2023 10:36 AM EDT Narrative [employer] [facility] - 02/07/2023 6:45 AM EDT PATIENT UNABLE TO VOID; ADVISED TO RETURN FOR COLLECTION. For additional information, please refer to [email or web address]/faq/PLY203 (This link is being provided for informational/ educational purposes only.) us Majanoxuan Criss [facility] - BLOOD DRAW Final Resul t [employer] [address] [address], [facility] [address] [address] from Last 3 Months or Most Recently Relevant to Health Maintenance Insurance [place]ARE - [place] Care Teams Mathematics Improvement Teacher Relationship Specialty Start Date End Date Rosalva Kahn PA-C [address] [address] PCP - General [facility] 09/21/24
--- OUTSIDE RECORDS SUMMARY | 2025-05-30 11:36 | XMS_ITS | Clinical Summary ---
Author Organization [facility] Address [address] [place] [address] Phone Care Team Providers Care Movie Stunt Performer Name Role Phone Marcie Valdes MD Primary Care Provider [phone] Allergies No known active allergies Medications Multiple Vitamin (MULTIVITAMIN ADULT PO) Take 1 tablet by mouth 1 (one) time each day Active Acetaminophen (Tylenol) 325 MG capsule Active ascorbic acid (VITAMIN C) 500 MG tablet Take 1 tablet by mouth 1 (one) time each day Active aspirin (ST LEÓN) 81 MG EC tablet Take 1 tablet by mouth 1 (one) time each day Active cholecalciferol (VITAMIN D-3) 25 MCG (1000 UT) capsule Take 1 capsule by mouth 1 (one) time each day Active dorzolamide-nolberto olol (COSOPT) 22.3-6.8 MG/ML ophthalmic solution 08/20/2021 Active Lantus SoloStar 100 UNIT/ML injection 07/20/2021 Active insulin lispro (HumaLOG) 100 UNIT/ML injection Active latanoprost (XALATAN) 0.005 % ophthalmic solution 08/23/2021 Active metoprolol succinate XL (TOPROL-XL) 100 MG 24 hr tablet Take 1 tablet by mouth 1 (one) time each day 07/12/2021 Active atorvastatin (LIPITOR) 20 MG tablet Take 20 mg by mouth 1 (one) time each day 08/30/2022 Active lisinopril 5 MG tabletIndicatio ns:Chronic kidney disease stage 3 (HCC),Hypertens ion Take 1 tablet (5 mg total) by mouth 1 (one) time each day in the evening 90 tablet 06/10/2023 Active Active Problems Problem Noted Date Diagnosed Date Hypertension 12/04/2021 Acute nontraumatic kidney injury 12/03/2021 Chronic kidney disease stage 3 10/01/2021 Hypertensive renal disease 10/01/2021 Hypertensive disorder 12/17/2013 Resolved Problems Problem Noted Date Diagnosed Date Resolved Date Necrotizing fasciitis 12/03/20212021 Uncontrolled type 2 diabetes mellitus 12/03/2021 12/03/2021 Overview (06/08/2024): Replacing diagnoses that were inactivated after the 06/08/24 Regulatory Import Other specified glaucoma 01/11/2021 Fracture of ankle 07/24/2017 12/03/2021 Overview (12/03/2021): Xray 07/12/17 at [facility] there is a comminuted fracture of the midshaft of the fibula with large butterfly type fracture fracment and medical apex angulation. There is also an oblique/spiral fracture of the distal tibia with mild comminution and approximately one shaft width lateral displacement of distal fragment. Myoclonus 10/02/2015 12/03/2021 Routine general medical exam ination at a health care facility 03/03/2015 12/03/2021 Mammography abnormal 09/09/2014 022 Overview (12/03/2021): 08/25/14- 1.6 x 2.0 cm posterolateral,upper right [...] associated microcalcifications. 3-sclerotic fibroadenoma with associated microcalcifications. Cryptogenic stroke 12/17/2013 2 Overview (12/03/2021): Pt at [facility] for stroke , sent to rehab post stroke, had home health r for wound care.[place] [phone]. Background retinopathy- [facility] Disorder of vision 12/17/2013 2 Overview (12/03/2021): [facility]-06/16/14. preproliferative diabetic retinopathy. Rpt in 6 months Dyslipidemia 12/17/2013 12/03/2021 Insulin treated type 2 diabetes mellitus 12/17/2013 12/03/2021 Immunizations Immunization Administration Dates Next Due Influenza, Quadrivalent, Preservative Free 07/02 Pneumococcal Conjugate 13-Valent 07/04/2014 Pneumococcal Polysaccharide 03/29/2019 Td, Unspecified 05/27/2001 Family History Medical History Relation Comments Diabetes Mother Hypertension Mother Kidney disease Mother Diabetes Sibling 1 Hypertension Sibling 2 Relation Status Comments Father Mother Alive Sibling 1 Sibling 2 Social History Tobacco Use Types Packs/Day Years Used Date Smoking Tobacco: Former Cigarettes Q uit: 09/08/2012 Smokeless Tobacco: Never Tobacco Cessation:Counseling Given: Not Answered Comments:Smoking History Info:Some days Alcohol Use Standard Drinks/Week Comments No 0 (1 standard drink = 0.6 oz pur e alcohol) Comments Unknown Sex and Gender Information Value Date Recorded Sex Assigned at Not on file Legal Sex Female 4:44 PM EST Gender Identity Not on file Sexual Orientation Not on file Last Filed Vital Signs Vital Sign Reading Time Taken Comments Blood Pressure 126/88 10/21/2022 4:38 PM EST Pulse 72 10/21/2022 4:38 PM EST Temperature - - Respiratory Rate - - Oxygen Saturation - - Inhaled Oxygen Concentration - - Weight 114 kg (252 lb) 10/21/2022 4:38 PM EST Height 167.6 cm (5' 6 ) 03/15/2020 12:00 PM EDT Body Mass Index 40.67 03/15/2020 12:00 PM EDT Plan of Treatment Health Maintenance Due Date Last Done Comments Breast Cancer Screening 1955 Colorectal Cancer Screening: Annual FOBT 2006 Colorectal Cancer Screening: Colonoscopy 2006 Colorectal Cancer Screening: Sigmoidoscopy 2006 Pneumococcal Vaccine: 50+ Years (3 of 3 - PCV20 or PCV21) 03/29/2024 03/29/2019, 07/04/2014 Influenza Vaccine (#1) 2025 07/02/2017 Pneumococcal Vaccine: Peds ( 0 to 5 Years) and At-Risk Patients (6 to 49 Years) Discontinued 03/29/2019, 07/04/2014 Hepatitis B Vaccine Aged Out No longe r eligible based on patient's age to complete this topic Insurance Medicare Medicare Care Teams Movie Stunt Performer Relationship Specialty Start [place] [address] PCP - General Family Medicine 12/04/21
--- OUTSIDE RECORDS SUMMARY | 2025-05-30 11:36 | XMS_ITS | Clinical Summary ---
Author Organization [facility] Address [address] [place], [place] [id number] Phone Care Team Providers Care Dental Assistant Name Role Phone Rosalva Kahn PA-C Primary Care Provider [phone] Social History Tobacco Use Types Packs/Day Years Used Date Smoking Tobacco: Never Assessed Comments Unknown Sex and Gender Information Value Date Recorded Sex Assigned at Not on file Legal Sex Female 2:07 PM EST Gender Identity Not on file Sexual Orientation Not on file Plan of Treatment Not on file Medical Devices Not on file [place] [id number] MEDICARE PART A & B MEDICARE PART A & B MEDICARE PART A & B MEDICARE PART A & B MEDICARE PART A & B Care Teams Dental Assistant Relationship Specialty Start Date End Date Rosalva Kahn PA-C PCP - General Physician Animal Taxonomist 10/21/24 Additional Source Comments The information contained in this document represents components of the legal health record. It is not the complete legal health record.[facility]
--- OUTSIDE RECORDS SUMMARY | 2025-05-30 11:36 | XMS_ITS | Clinical Summary ---
Author Organization [facility] Address [address] [place] [address] Phone Care Team Providers Care Diesel Service Journeyman Name Role Phone Vanessa Gonzalez Primary Care Provider [phone] Allergies No known active allergies Medications acetaminophen (TYLENOL) 325 mg tablet Take 650 mg by mouth every 6 hours as needed. Active aspirin 81 mg EC tablet Take 81 mg by mouth daily. Active cholecalcifero l (VITAMIN D-3) 25 mcg (1,000 unit) capsule Take by mouth. Activ e dorzolamide (TRUSOPT) 2 % ophthalmic solution 2 Drops 3 times daily. Active dorzolamide-ti moloL (COSOPT) 22.3-6.8 mg/mL ophthalmic solution 1 Drop 2 times daily. Active insulin glargine (LANTUS) 100 unit/mL injection Inject 28 Units into the skin at bedtime Active insulin lispro (HumaLOG KwikPen Insulin) 100 unit/mL injection pen Inject into the skin. 3-21 units subcutaneously 3 times daily max 63 units daily Active latanoprost (XALATAN) 0.005 % ophthalmic solution apply 1 Drop to the eye at bedtime. Active lisinopriL (PRINIVIL,ZEST RIL) 5 mg tablet Take 5 mg by mouth daily. Active metoprolol succinate (TOPROL-XL) 100 mg 24 hr tablet Take 100 mg by mouth daily. Active multivitamin/i nicolás/folic acid (CERTAVITE-ANT IOXIDANT ORAL) Take by mouth. Active atorvastatin (LIPITOR) 40 mg tablet Take 1 Tablet by mouth at bedtime. Active ketorolac (ACULAR) 0.5 % ophthalmic solution 1 Drop daily. Active Immunizations Name Administration Dates Next Due Td, Unspecified 05/27/2001 Social History Tobacco Use Types Packs/Day Years Used Date Smoking Tobacco: Never Assessed Comments Unknown Sex and Gender Information Value Date Recorded Sex Assigned at Not on file Legal Sex Female 12:54 PM EST Gender Identity Not on file Sexual Orientation Not on file Plan of Treatment Health Maintenance Due Date Last Done Comments Diabetes: Annual Foot Exam 1967 Diabetes: Annual Retina Eye Exam 1967 Diabetes: Annual GFR (Glomerular Filtration Rate) 07/15/2004 07/15/2003 Zoster Vaccines (1 of 2) 2007 DTaP,Tdap,and Td Vaccines (2 - Td or Tdap) 05/27/2011 05/27/2001 RSV Immunization Adult Patients (1 - Risk 60-74 years 1-dose series) 2017 Cholesterol Screening (Lipid Panel) 08/06/2022 Colorectal Cancer Screening: Colonoscopy 08/06/2022 Falls Risk Assessment 08/06/2022 Hepatitis C Screening 08/06/2022 Medicare Annual Wellness Visit 08/06/2022 Social Influencers of Health Screening 08/06/2022 Pneumococcal Vaccine: 50+ Years (3 of 3 - PCV20 or PCV21) 03/29/2024 03/29/2019, 07/04/2014 Depression Screening 09/08/2024 COVID-19 Vaccine (1 - 2023-2 5 season) 2025 Influenza Vaccine (#1) 2025 07/02/2017 Diabetes: Annual Urine Albumin-Creatinine Ratio (uACR) 05/16/2025 Diabetes: Blood Sugar Contro l Test (HGBA1C) 05/16/2025 07/15/2003 Hypertension/CHF/CAD Annual BMP Blood Test 05/16/2025 07/15/2003 Breast Cancer Screening 03/22/2026 03/22/20 24, 06/17/2022, 12/26/2020 Osteoporosis Screening (Bone Density Screening) 03/03/2034 03/03/2024 HIB Vaccines Aged Out No longer eligi ble based on patient's age to complete this topic HPV Vaccines Aged Out No longer eligi ble based on patient's age to complete this topic Hepatitis A Vaccines Aged Out No long er eligible based on patient's age to complete this topic Hepatitis B Vaccines Aged Out No long er eligible based on patient's age to complete this topic IPV Vaccines Aged Out No longer eligi ble based on patient's age to complete this topic MMR Vaccines Aged Out No longer eligi ble based on patient's age to complete this topic Meningococcal ACWY Vaccine Aged Out N o longer eligible based on patient's age to complete this topic Meningococcal B Vaccine Aged Out No l onger eligible based on patient's age to complete this topic RSV Immunization Patients Under 20 months Aged Out No longer eligible b ased on patient's age to complete this topic Varicella Vaccines Aged Out No longer eligible based on patient's age to complete this topic Procedures Procedure Name Priority Date/Time Associated Diagnosis Comments [facility] SCREENING DIGITAL Routine 03/22/2024 9:45 AM EDT Encounter for screening mammogram for malignant neoplasm of breast [facility] DEXA AXIAL SKELETON Routine 03/03/2024 4:54 PM EDT Other specified disorders of bone density and structure, left thigh ANNUAL BMP BLOOD TEST Routine 07/15/2003 HEMOGLOBIN A1C Routine 07/15/2003 from Last 3 Months or Most Recently Relevant to Health Maintenance Results * [facility] SCREENING DIGITAL (03/22/2024 9:45 AM EDT) Anatomical Region Laterality Modality Mammography 03/18/2024 7:44 AM EDT Narrative 03/22/2024 9:45 AM EDT [facility] Diagnostic Imaging Department [address] [place] [address] Patient: SALOME JEFFRIES./Age/Sex: 1955 - 68 - F Unit#: [id number] Location/Status: SPDIMAM/REG CLI Mnemonic/Ordering Site: DIGSC/SPMAM Ordering Physician: VANESSA GONZALEZ PA-C [facility] Screening Digital - 03/20/24 - [id number] Report Status:Signed EXAM: [facility] Screening Digital EXAM DATE AND TIME: 03/20/2024 9:33 AM HISTORY: Screening. Multiple previous right breast biopsies (2014), yielding benign pathology. Sister had breast carcinoma at age 68. COMPARISON: 06/17/22, 12/26/20, 08/25/14 TECHNIQUE: Bilateral digital breast tomosynthesis was performed in the CC and MLO projections. Computer aided detection with [employer] 3D 3.1 was employed. TISSUE DENSITY: b. There are scattered areas of fibroglandular density. FINDINGS: No suspicious masses, grouped microcalcifications, or areas of architectural distortion are seen. Numerous coarse heterogeneous calcifications are again seen bilaterally, without significant change. A 23 mm circumscribed round mass in the upper outer right breast contains a ribbon biopsy marker, consistent with a known fibroadenoma. Vascular calcification is present. The skin is unremarkable. IMPRESSION: Stable mammographic appearance of the breasts. No evidence of malignancy is seen. A negative mammogram in the presence of a clinically suspicious palpable abnormality does not preclude the possibility of malignancy or alter the indications for biopsy. BI-RADS: Category 2: Benign RECOMMENDATION(S): 1: Routine screening mammogram BILATERAL in 1 year. Dictating Physician: SARITA CARMONA MD Electronically Signed by: SARITA CARMONA MD Dic Date/Time: 03/22/2443 Sign date/Time: 03/22/2445 Procedure Note Sarita Carmona MD - 06/23/2024 [facility] Diagnostic Imaging Department [address] [place] [address] [id number] Patient: SALOME JEFFRIES /Age/Sex: 1955 - 68 - F Unit#: [id number] Location/Status: SPDIMAM/REG CLI Mnemonic/Ordering Site: [facility] Ordering Physician: VANESSA GONZALEZ PA-C [facility] Screening Digital - 03/20/24 - 931 Report Status:Signed EXAM: [facility] Screening Digital EXAM DATE AND TIME: 03/20/2024 9:33 AM HISTORY: Screening. Multiple previous right breast biopsies (2014),yielding benign pathology. Sister had breast carcinoma at age 68. COMPARISON: 06/17/22, 12/26/20, 08/25/14 TECHNIQUE: Bilateral digital breast tomosynthesis was performed in the CCand MLO projections. Computer aided detection with [employer] 3D 3.1was employed. TISSUE DENSITY: b. There are scattered areas of fibroglandular density. FINDINGS: No suspicious masses, grouped microcalcifications, or areas ofarchitectural distortion are seen. Numerous coarse heterogeneous calcifications areagain seen bilaterally, without significant change. A 23 mm circumscribed round massin the upper outer right breast contains a ribbon biopsy marker, consistent witha known fibroadenoma. Vascular calcification is present. The skin is unremarkable. IMPRESSION: Stable mammographic appearance of the breasts. No evidence of malignancyis seen. A negative mammogram in the presence of a clinically suspicious palpable abnormality does not preclude the possibility of malignancy or alter the indications for biopsy. BI-RADS: Category 2: Benign RECOMMENDATION(S): 1: Routine screening mammogram BILATERAL in 1 year. Dictating Physician: SARITA CARMONA MD Electronically Signed by: SARITA CARMONA MD Dic Date/Time: 03/22/2443 Sign date/Time: 03/22/24944 us Vanessa ALEXANDRE IMG BI PROCEDURES Final Result * [facility] DEXA AXIAL SKELETON (03/03/2024 4:54 PM EDT) Anatomical Region Laterality Modality Mammography 03/03/2024 1:05 PM EDT Narrative 03/03/2024 4:54 PM EDT [facility] Diagnostic Imaging Department [address] [place] [id number] Patient: SALOME JEFFRIES /Age/Sex: 1955 - 68 - F Unit#: [id number] Location/Status: [facility] CLI Mnemonic/Ordering Site: MAMDEXAAX/SPMAM Ordering Physician: VANESSA GONZALEZ PA-C [facility] Dexa Axial Skeleton - 03/03/24 - [id number] Report Status:Signed History: Low estrogen state due to menopause. Personal history of fracture. Parent hip fracture. Comparison: No comparison imaging. Findings: Bone densitometry is performed utilizing dual energy x-ray absorptiometry (DXA) in the [employer] unit. The lumbar spine and proximal femora are evaluated in the AP projection. The FRAX questionaire was completed. The results indicate low bone mass (osteopenia), with a left femoral neck T- score of -1.9. The Z score is -2.0, indicating very low bone mineral density for age. The detailed DEXA report will be mailed to the referring physician's office. DualFemur FRAX: 10-year Probability of Fracture: Major Osteoporotic 11.4 percent Hip 1.0 percent. IMPRESSION: Osteopenia. [id number] Dictating Physician: SARITA CARMONA MD Electronically Signed by: SARITA CARMONA MD Dic Date/Time: 03/03/241653 Sign date/Time: 03/03/241653 Procedure Note Sarita Carmona MD - 06/23/2024 [facility] Diagnostic Imaging Department [address] [place] [address] Patient: NESHASALOME Spears./Age/Sex: 1955 - 68 - F Unit#: [id number] Location/Status: [facility] CLI Mnemonic/Ordering Site: MAMDEXAAX/SPMAM Ordering Physician: VANESSA GONZALEZ PA-C [facility] Dexa Axial Skeleton - 03/03/24 - [id number] Report Status:Signed History: Low estrogen state due to menopause. Personal history offracture. Parent hip fracture. Comparison: No comparison imaging. Findings: Bone densitometry is performed utilizing dual energy x-ray absorptiometry(DXA) in the [employer] unit. The lumbar spine and proximal femora areevaluated in the AP projection. The FRAX questionaire was completed. The results indicate low bone mass (osteopenia), with a left femoral neckT- score of -1.9. The Z score is -2.0, indicating very low bone mineraldensity for age. The detailed DEXA report will be mailed to the referringphysician's office. DualFemur FRAX: 10-year Probability of Fracture: Major Osteoporotic 11.4 percent Hip 1.0 percent. IMPRESSION: Osteopenia. [id number] Dictating Physician: SARITA CARMONA MD Electronically Signed by: SARITA CARMONA MD Dic Date/Time: 03/03/241653 Sign date/Time: 03/03/241653 Result [facility] Vanessa ALEXANDRE IMG BI PROCEDURES Final Result * Annual BMP Blood Test (07/15/2003) Annual BMP Blood Test abstracted Result [facility] Historical Provider HEALTH MAINTENANCE Final Result * (ABNORMAL) Hemoglobin A1c (07/15/2003) Hemoglobin A1C 8.3(A) 4.0 - 6.0 % Blood Venous blood specimen / Unknown Result [facility] Historical Provider LAB BLOOD ORDERABLES Edit ed Result - Final from Last 3 Months or Most Recently Relevant to Health Maintenance Insurance MEDICARE Care Teams Diesel Service Journeyman Relationship Specialty Start Date End Date Vanessa Gonzalez PA [address] [place] [address] PCP - General 05/23/22
[2025-05-30 14:18] LABS: Anion Gap 12 (12-20); Blood Urea Nitrogen 22 mg/dL (9-16); Carbon Dioxide 26 mmol/L (22-29); Chloride 108 mmol/L (96-108); Estimated Glomerular Filt Rate 59; Potassium 4.4 mmol/L (3.3-5.1); Sodium 142 mmol/L (135-145); Total Protein Urine Random < 7 mg/dL (<12)
== END 2025-05-30 09:44 | disposition home or self-care (01) ==
LOC: HO.HKASLDS 09:43
PROVIDERS: Visit Provider Internal Medicine Nephrology
DX: I12.9 Hypertensive chronic kidney disease with stage 1 through stage 4 chronic kidney disease, or unspecified chronic kidney disease (principal); N18.31 Chronic kidney disease, stage 3a
CPT/HCPCS: 36415; 80051; 82565; 82570; 84156; 84520

== ENCOUNTER 2025-06-02 11:08 | Outpatient (AMB) | payer MEDICARE, SELFPAY ==
--- NOTE | 2025-06-02 11:13 | HO.NEPHOV_ITS ---
Vital Signs 06/02/25 11:21 Height 5 ft 6 in Weight 267 lb 2 oz BMI 43.1 BP 140/80 H Blood Pressure Location Rt brachial Position Sitting Pulse 72 Pulse Source Pulse Oximeter Pulse Oximetry (%) 96 Oxygen Delivery Method Room Air Intake Visit Reasons: 6 mon follow up-[facility] Spot Facer Required: No Accompanied by: Sister Allergies No Known Allergies Allergy (Verified 06/02/25 11:21) HPI Comments Details: Salome in follow-up of her mild chronic kidney disease and hypertension. Her blood pressure is well controlled .Her blood sugar is reasonable. She does not have any proteinuria, hematuria, pedal edema . She is compliant with her medications. She avoids nonsteroidal anti-inflammatory medications. She does not have any chest pain, shortness of breath, proximal nocturnal dyspnea, orthopnea, or any other systemic symptoms. She denies nausea vomiting or diarrhea . Her A1c had been acceptable. She has been started on bisphosphonate and calcium by PCP. There were no new active complaints at the time of this office visit [facility] Medical History (Updated 11/04/23 @ 10:12 by Axel Ram MD) Hypertension Chronic kidney disease, stage 3 unspecified Surgical History History of ankle surgery Hx of abdominal surgery Family History Mother Diabetes Brother Diabetes Social History Alcohol intake: never Patient Tobacco Use Status: Former Tobacco user Review of Systems Const All systems reviewed & are unremarkable except as noted in HPI and below Physical Exam Const General: comfortable and no acute distress Orientation/consciousness: patient oriented x3 HEENT Head: Yes normocephalic Mouth: Normal oral and palatal mucosa present Eyes EOM: EOMs intact bilaterally Neck Neck: Yes supple Resp Auscultation: clear to auscultation bilaterally Cardio Jugular venous distension: no JVD Rate: regular rate GI Palpation (GI): Soft to palpation Auscultation: normal bowel sounds General: Yes no CVA tenderness Back/Spine/Pelvis Back: no CVA tenderness Skin General skin exam: no rashes or lesions noted Neuro General: patient oriented x3 and moves all extremities Extrem General: Yes no pedal edema Results Reviewed Nephrology Results: Sodium, (135-145) 142 mmol/L 05/30/25 Potassium, (3.3-5.1) 4.4 mmol/L 05/30/25 Chloride, (96-108) 108 mmol/L 05/30/25 Carbon Dioxide, (22-29) 26 mmol/L 05/30/25 BUN, (9-16) 22 mg/dL H 05/30/25 Creatinine, (0.5-1.4) 0.94 mg/dL 05/30/25 Calcium, (8.4-10.2) 10.2 mg/dL Δ 09/15/24 Phosphorus, (2.7-4.5) 3.6 mg/dL 03/18/24 PTH Intact, (8.7-77.1) 74.1 pg/mL 09/15/24 Urine Creatinine 39.36 mg/dL 05/30/25 Protein/Creatinin Ratio TNP 05/30/25 Assessment & Plan Assessment & Plan (1) Chronic kidney disease, stage 3 unspecified: Code(s): N18.30 - Chronic kidney disease, stage 3 unspecified Category: Medical Qualifiers: Chronic kidney disease stage 3 subtype: stage 3a (GFR 45-59) Qualified Code(s): N18.31 - Chronic kidney disease, stage 3a (2) Hypertension: Code(s): I10 - Essential (primary) hypertension Category: Medical Qualifiers: Hypertension type: primary hypertension Qualified Code(s): I10 - Essential (primary) hypertension Plan Salome has mild CKD 3 likely from vascular disease. She is a diabetic. She has hypertension and is on lisinopril which is tolerating very well. She could continue lisinopril 7.5 mg daily. She has no history from hematuria proteinuria. She has no orthostatic symptoms. She has no history of left ventricular hypertrophy, retinopathy. She is compliant with her medications. She tries to hydrate herself well. She is a potential candidate for [employer] or [employer]. I have ordered follow-up blood work and urine studies. I did not make any other medication changes today. All questions were answered Orders: Orders Protein Creatinine Ratio, Ur 6 Months I10 - Essential (primary) hypertension, N18.31 - Chronic kidney disease, stage 3a Calcium 6 Months I10 - Essential (primary) hypertension, N18.31 - Chronic kidney disease, stage 3a Electrolytes 6 Months I10 - Essential (primary) hypertension, N18.31 - Chronic kidney disease, stage 3a Blood Urea Nitrogen 6 Months I10 - Essential (primary) hypertension, N18.31 - Chronic kidney disease, stage 3a Creatinine 6 Months I10 - Essential (primary) hypertension, N18.31 - Chronic kidney disease, stage 3a Coding Level of Care Code Tele Est Pt Level 4 (01750) Diagnoses Stage 3a chronic kidney disease N18.31 Chronic kidney disease stage 3 subtype: stage 3a (GFR 45-59) Primary hypertension I10 Hypertension type: primary hypertension
[2025-06-02 11:21] VITALS: BP 140/80; PULSE 72; O2SAT 96; BMI 43.1
--- OUTSIDE RECORDS SUMMARY | 2025-06-02 15:53 | XMS_ITS | Clinical Summary ---
Author Organization [facility] Address [address] [place] [address] Phone Care Team Providers Care Winchman/Crane Operator Name Role Phone Marcie Valdes MD Primary Care Provider [phone] Allergies No known active allergies Medications Multiple [...] 07/24/2017 12/03/2021 Overview (12/03/2021): Xray 07/12/17 at [facility] there is a comminuted fracture of the [...] stroke 12/17/2013 2 Overview (12/03/2021): Pt at [facility] for stroke , sent to rehab post stroke, had home health r for wound care.[place] [phone]. Background retinopathy- [facility] care group Disorder of vision 12/17/2013 2 Overview (12/03/2021): [facility]16[facility]14. preproliferative diabetic retinopathy. Rpt in 6 months [...] this topic Insurance Medicare Medicare Care Teams Winchman/Crane Operator Relationship Specialty Start Date [place] [address] PCP - General Family Medicine 12/04/21
--- OUTSIDE RECORDS SUMMARY | 2025-06-02 15:53 | XMS_ITS | Clinical Summary ---
Author Organization [facility] Address [address] [place], [place] [id number] Phone Care Team Providers Care Prospecting Observer Name Role Phone Rosalva Kahn PA-C Primary Care Provider Social History Tobacco Use Types Packs/Day Years Used Date Smoking Tobacco: Never Assessed Comments Unknown Sex and Gender Information Value Date Recorded Sex Assigned at Not on file Legal Sex Female 2:07 PM EST Gender Identity Not on file Sexual Orientation Not on file Plan of Treatment Not on file Medical Devices Not on file Insurance [place] [id number] MEDICARE PART A & B MEDICARE PART A & B MEDICARE PART A & B MEDICARE PART A & B MEDICARE PART A & B Care Teams Prospecting Observer Relationship Specialty Start Date End Date Rosalva Kahn PA-C PCP - General Physician [employer] Supervisor 10/21/24 Additional Source Comments The information contained in this document represents components of the legal health record. It is not the complete legal health record.[facility]
== END 2025-06-02 11:44 | disposition home or self-care (01) ==
LOC: HO.HKAS 11:09
PROVIDERS: Visit Provider Internal Medicine Nephrology
DX: N18.31 Chronic kidney disease, stage 3a (principal); I10 Essential (primary) hypertension
CPT/HCPCS: 99214

== ENCOUNTER → 2025-06-02 11:08 | Outpatient (BNVA) | payer MEDICARE, SELFPAY | PROVIDERS: Visit Provider Internal Medicine Nephrology | DX: E11.22 Type 2 diabetes mellitus with diabetic chronic kidney disease (principal); N18.31 Chronic kidney disease, stage 3a; E11.29 Type 2 diabetes mellitus with other diabetic kidney complication; Z87.891 Personal history of nicotine dependence; Z79.84 Long term (current) use of oral hypoglycemic drugs | CPT/HCPCS: 99212 ==